=== PATIENT | male | born 1980 | race Caucasian/White ===

== ENCOUNTER 2024-04-24 08:18 | Day surgery (SDC) | payer OTHER ==
[~2024-04-24] VITALS: Ht 190.5 cm; Wt 112.2 kg
[~2024-04-24 08:18] MED LIST: IBLOOD GLUCOSE TEST STRIP 1 EA TEST VI PRN; LACTATED RINGER'S 1,000 ML IV SCH; LIDOCAINE HCL 1% 5 ML SDV INJ ONE; LIDOCAINE HCL 4% 50 ML BTL TOP SCH; MIDAZOLAM HCL 5 MG/5 ML VIAL IV PRN; fentaNYL citrate 100 MCG/2 ML VIAL IV PRN
[2024-04-24 08:41] VITALS: BP 111/61
[2024-04-24] MEDS ORDERED: fentaNYL citrate 100 MCG/2 ML VIAL ONE ×2 (09:45→09:46)
[2024-04-24] MEDS ORDERED: MIDAZOLAM HCL 5 MG/5 ML VIAL ONE (09:46)
--- NOTE | 2024-04-24 10:54 | NUR ---
04/24/24 1054 Madonna Mejia 1052-PT TO PACU IN SUPINE POSITION. EYES OPEN AT TIMES, PT REMAINS DROWSY. PT DENIES PAIN AND FALLS BACK TO SLEEP. BREATHING EASY AND UNLABORED. SPO2 >95% ON 2 L O2 VIA NC. PT REPOSITIONS SELF TO LL POSITION. PT ENCOURAGED TO PASS GAS.
[2024-04-24 11:32] VITALS: BP 114/78
--- NOTE | 2024-04-24 15:28 | OR ---
[facility] [address], [place] [address] Signed DATE OF OPERATION: 04/24/2024 SURGEON: Deepti Escamilla MD PREOPERATIVE DIAGNOSES: 1. Gastroesophageal reflux symptoms. 2. Family history of colon cancer (father). POSTOPERATIVE DIAGNOSES: 1. Hiatal hernia and distal esophagitis without stricture or neoplasm. No evidence of Anderson's epithelium. 2. Small polyps x2 (splenic flexure and proximal ascending colon). PROCEDURES: 1. Total colonoscopy to cecum with cold morcellation polypectomy x2. 2. Upper endoscopy with biopsy. ANESTHESIA: Intravenous sedation; fentanyl 150 mcg, Versed 8 mg total. INDICATIONS: This 43-year-old white man is a patient of MARICRUZ Majano. He last underwent colonoscopy in 2014, which was normal. He has a family history of colon cancer in his father, who contracted colon cancer at age 48 and younger brother had colon polyps. He had no findings on colonoscopy at age 33 and was recommended to have repeat colonoscopy in 5 years based on his family history. He currently has no symptoms of bleeding, diarrhea, or constipation. Additionally, he has symptoms of reflux, which were rather significant. He usually takes Tums tablets with some benefit. He has been prescribed PPI medication, but he "forgets" to take it. He is admitted at this time to undergo upper endoscopy and colonoscopy. He understands the risk of bleeding, infection, perforation. FINDINGS: Upper endoscopy did demonstrate a poor flap valve consistent with small hiatal hernia and distal esophagitis. There was no sign of Anderson epithelium. CLOtest was negative. On colonoscopy, the prep was good. Complete colonoscopy was undertaken of the cecum and he had two small polyps, one at the splenic flexure and another at the proximal ascending colon, both were excised. Electronically Signed By: DEEPTI ESCAMILLA MD 04/24/24 1528 PATIENT NAME: SHIVAM CASTILLO OPERATIVE REPORT DATE OF : 76 REPORT #: [id number] PHYSICIAN: DEEPTI ESCAMILLA MD PCP: NUBIA ROJAS REPORT IS CONFIDENTIAL AND NOT TO BE RELEASED WITHOUT AUTHORIZATION [facility] [address], [place] [address] Signed DESCRIPTION OF PROCEDURE: The patient was brought to the endoscopy suite and placed in lateral decubitus position given intravenous sedation to the point of slurred speech and nystagmus after undergoing lidocaine hypopharyngeal anesthesia. A bite block was placed. Olympus video upper endoscope was passed into the hypopharynx. Vocal cords reasonably normal, though the posterior fourchette did have inflammatory change. The scope was advanced to the esophagus throughout its length, it was normal except in the distal portion there was mild inflammatory change, but no Anderson epithelium, stricture, or neoplasm. The scope was passed through the stomach, which was insufflated with air. Rugal folds were normal. The pylorus was normal. Scope was passed through into the duodenum, which was normal overall. Biopsies were obtained of the duodenum to assess for celiac disease and also of the antrum to assess for H pylori. CLOtest was obtained as well. The scope was withdrawn and retroflexed view showed additionally normal-appearing flap valve, but easily effaced revealing distal esophagitis. The scope was straightened and withdrawn. Biopsy was taken of the distal esophagus and ultimately mid esophagus and scope was removed. Plans were then made for colonoscopy. Additional sedation was given. Digital rectal examination was performed, which was normal. An Olympus video colonoscope was passed into the rectum and manipulated throughout the colon, ultimately intubating the cecum itself. The ileocecal valve and appendiceal orifice were normal. Scope was withdrawn from that point and a small polyp was noted at the proximal right colon, this was excised with cold morcellation technique. Further withdrawal showed another similar such polyp in the splenic flexure, it too was excised. Further withdrawal showed no other abnormality. Retroflexed view of the rectum was normal. The scope was withdrawn and removed, the patient was taken to the recovery room in good condition. CONCLUDING DIAGNOSES: 1. Gastroesophageal reflux clinically and endoscopically, we will prescribe in a more dedicated way PPI medication on daily basis. We will see him back in the office in six weeks more or less to assess his result. 2. Polyps on colon. Given the polyps that were found, we would recommend repeat colonoscopy in three years rather than five as usually recommended based on family history. Deepti Escamilla MD Electronically Signed By: DEEPTI ESCAMILLA MD 04/24/24 1528 PATIENT NAME: SHIVAM CASTILLO OPERATIVE REPORT DATE OF : [birth year] REPORT #: [id number] PHYSICIAN: DEEPTI ESCAMILLA MD PCP: NUBIA ROJAS REPORT IS CONFIDENTIAL AND NOT TO BE RELEASED WITHOUT AUTHORIZATION [address] [address] Signed /MODL /[id number] cc: MARICRUZ Majano Copies: ~ Electronically Signed By: DEEPTI ESCAMILLA MD 04/24/24 1528 PATIENT NAME: JONATHANSHIVAM O OPERATIVE REPORT DATE OF : 76 REPORT #: [id number] PHYSICIAN: DEEPTI ESCAMILLA MD PCP: NUBIA ROJAS REPORT IS CONFIDENTIAL AND NOT TO BE RELEASED WITHOUT AUTHORIZATION
--- NOTE | 2024-04-30 16:35 | PATH ---
[facility] [address] [facility] [place], [place] [address] Signed SPECIMEN(S): A DUODENAL BIOPSY SPECIMEN(S): B ANTRUM BIOPSY SPECIMEN(S): C LOWER ESOPHAGUS BIOPSY SPECIMEN(S): D MID ESOHAGUS BIOPSY SPECIMEN(S): E ASCENDING RIGHT COLON POLYP SPECIMEN(S): F SPLENIC FLEXURE COLON POLYP SPECIMEN SOURCE: A. DUODENAL BIOPSY B. ANTRUM BIOPSY C. LOWER ESOPHAGUS BIOPSY D. MID ESOHAGUS BIOPSY E. ASCENDING RIGHT COLON POLYP F. SPLENIC FLEXURE COLON POLYP CLINICAL HISTORY: F Hx colon cancer, dysphagia, GERD with esophagitis. Postop: Hiatal hernia, polyp x 2 FINAL PATHOLOGIC DIAGNOSIS: A. Duodenal biopsy: - Benign duodenal mucosa, negative for specific diagnostic abnormality. B. Antrum biopsy: - Benign gastric mucosa with focal slight chronic inflammation. - Negative for evidence of Helicobacter organisms on routine HE stain sections. C. Lower esophagus biopsy: - Benign esophageal mucosa, negative for increased epithelial eosinophils. - Negative for glandular mucosa. D. Mid esophagus biopsy: - Benign esophageal mucosa, negative for increased epithelial eosinophils. E. Ascending right colon polyp: - Serrated polyp/adenoma (multiple fragments). F. Splenic flexure colon polyp: - Polypoid colonic mucosa with focal slight hyperplastic features. JVR:dennis MICROSCOPIC EXAMINATION: Histologic sections of all submitted blocks are examined by light microscopy. These findings, together with the gross examination, support the pathologic diagnosis. PATIENT NAME: MARTELLSHIVAM Ijeoma PATHOLOGY DATE OF : 76 REPORT #: [id number] PHYSICIAN: AIRAM ARREDONDO PCP: NUBIA ROJAS REPORT IS CONFIDENTIAL AND NOT TO BE RELEASED WITHOUT AUTHORIZATION [facility] [address] [place], [place] [address] Signed GROSS DESCRIPTION: A. The specimen, labeled and designated "Martell, designation per requisition, duodenum biopsy," is received in formalin and consists of three fragments of soft melton tissue that are up to 0.3 cm in greatest dimension. Entirely submitted in (A1). B. The specimen, labeled and designated "Martell, designation per requisition, antrum/pylorus biopsy," is received in formalin and consists of two fragments of soft melton tissue that are up to 0.8 cm in greatest dimension. Entirely submitted in (B1). C. The specimen, labeled and designated "Martell, designation per requisition, lower esophagus biopsy," is received in formalin and consists of six fragments of soft melton tissue that are up to 0.6 cm in greatest dimension. Entirely submitted in (C1). D. The specimen, labeled and designated "Martell, designation per requisition, middle esophagus biopsy," is received in formalin and consists of two fragments of soft melton tissue that are up to 0.6 cm in greatest dimension. Entirely submitted in (D1). E. The specimen, labeled and designated "Martell, designation per requisition ascending/right polyp," is received in formalin and consists of multiple tissue fragments the largest measuring 1.5 x 0.8 0.2 cm in greatest dimension, inked black, and serially sectioned. Entirely submitted F. The specimen, labeled and designated "Martell, designation per requisition splenic flexure polyp," is received in formalin and consists of five fragments of soft melton tissue that are up to 0.3 cm in greatest dimension. Entirely submitted in (F1). TW (under the direct supervision of a pathologist) The Gross Description was prepared using a voice recognition system. The report was reviewed for accuracy; however, sound-alike word errors, addition and/or deletions may occur. If there is any question about this report, please contact Client Services. PERFORMING LABORATORY: Technical component was performed by [facility], [address] [place] [id number] (CLIA# [id number]). Professional interpretation was performed by [facility], [address] [place] [id number] (CLIA#: [id number]). Diagnostician: Buck Denis MD Pathologist PATIENT NAME: SHIVAM CASTILLO PATHOLOGY DATE OF : [birth year] REPORT #: [id number] PHYSICIAN: AIRAM ARREDONDO PCP: NUBIA ROJAS REPORT IS CONFIDENTIAL AND NOT TO BE RELEASED WITHOUT AUTHORIZATION [facility] [address] [place] [address] [place], [place] [address] Signed Electronically Signed 04/30/2024 Copies: ~ PATIENT NAME: SHIVAM CASTILLO PATHOLOGY DATE OF : [birth year] REPORT #: [id number] PHYSICIAN: AIRAM PATHOLOGY PCP: NUBIA ROJAS REPORT IS CONFIDENTIAL AND NOT TO BE RELEASED WITHOUT AUTHORIZATION
== END 2024-04-24 11:45 | disposition home or self-care (01) ==
LOC: OPS 08:18 → DS 08:23 → OPS 09:15
PROVIDERS: ATTEND Surgery
PROC: 0DB38ZX Excision of Lower Esophagus, Via Natural or Artificial Opening Endoscopic, Diagnostic (ICD-10-PCS; 2024-04-24)
PROC: 0DBF8ZX Excision of Right Large Intestine, Via Natural or Artificial Opening Endoscopic, Diagnostic (ICD-10-PCS; 2024-04-24)
PROC: 0DBL8ZX Excision of Transverse Colon, Via Natural or Artificial Opening Endoscopic, Diagnostic (ICD-10-PCS; 2024-04-24)
PROC: 0DB98ZX Excision of Duodenum, Via Natural or Artificial Opening Endoscopic, Diagnostic (ICD-10-PCS; principal; 2024-04-24 09:15)
PROC: 0DB28ZX Excision of Middle Esophagus, Via Natural or Artificial Opening Endoscopic, Diagnostic (ICD-10-PCS; 2024-04-24 09:15)
DX: K21.00 Gastro-esophageal reflux disease with esophagitis, without bleeding (principal); K29.50 Unspecified chronic gastritis without bleeding; K44.9 Diaphragmatic hernia without obstruction or gangrene; K63.5 Polyp of colon; D12.2 Benign neoplasm of ascending colon; G47.33 Obstructive sleep apnea (adult) (pediatric); E66.01 Morbid (severe) obesity due to excess calories; Z68.30 Body mass index [BMI] 30.0-30.9, adult; Z80.0 Family history of malignant neoplasm of digestive organs; Z87.891 Personal history of nicotine dependence
CPT/HCPCS: 99153; G0500; J2250; J3010; J7121

== ENCOUNTER 2025-09-27 07:28 | Day surgery (SDC) | payer OTHER ==
[~2025-09-27] VITALS: Ht 190.5 cm; Wt 111.0 kg
[~2025-09-27 07:28] MED LIST changes: -LIDOCAINE HCL 4% 50 ML BTL TOP SCH
[2025-09-27 07:44] VITALS: BP 131/76
[2025-09-27] MEDS ORDERED: fentaNYL citrate 100 MCG/2 ML VIAL ONE (08:41)
[2025-09-27] MEDS ORDERED: MIDAZOLAM HCL 5 MG/5 ML VIAL ONE (08:41)
--- NOTE | 2025-09-27 10:09 | NUR ---
09/27/25 Alex8 Tasia Casey 1002- PT PRESENTS TO PACU, LEFT LATERAL SEMI VENTURA POSITION. PT AWAKE BUT DROWSY. BREATHING EVEN AND NON LABORED, O2 AT 3L PER NC. LR INFUSING TO RH IV. ABD SOFT, NON DISTENDED, ENCOURAGED TO PASS GAS, DENIES PAIN OR NAUSEA. ALL MONITORS IN PLACE. PT RESTING INTERMITTENTLY.
[2025-09-27 10:28] VITALS: BP 113/79
--- NOTE | 2025-09-29 14:52 | OR ---
[facility] [address] [place], [place] [address] Signed DATE OF OPERATION: 09/27/2025 SURGEON: Deepti Escamilla MD PREOPERATIVE DIAGNOSES: 1. History of serrated adenoma 2023. 2. Family history of colon cancer (father). POSTOPERATIVE DIAGNOSIS: Small sessile polyp of sigmoid and four small probably hyperplastic polyps of rectum. PROCEDURES: Total colonoscopy to cecum with cold snare polypectomy x1 and cold morcellation polypectomy x4. ANESTHESIA: Intravenous sedation fentanyl 100 mcg and Versed 7 mg. INDICATION: A 44-year-old white man, patient of Ann Aggarwal PA-C, undergoing colonoscopy in 2023 by nc where he was found to have at least one serrated adenoma. He has family history of colon cancer in his father. He currently has no symptoms of bleeding, diarrhea or constipation. He also had a splenic flexure, hyperplastic polyp. He is admitted for short-term surveillance, given the serrated nature of his previous polyp and family history. He understands the risk of bleeding, infection, and perforation related to colonoscopy and wished to proceed. FINDINGS: The prep was excellent. Complete colonoscopy was undertaken of the cecum. There were four tiny hyperplastic polyps in the rectum and a small sessile possibly adenomatous polyp of the sigmoid. All were excised completely. DESCRIPTION OF PROCEDURE: The patient was brought to the endoscopy suite and placed in lateral decubitus position, given intravenous sedation to the point of slurred speech and nystagmus. Digital rectal examination was normal. An Olympus video colonoscope was passed in the rectum and manipulated throughout the colon ultimately intubating the cecum itself. The ileocecal valve and appendiceal orifice were normal. Scope was withdrawn from that point. Examination showed no sign Electronically Signed By: DEEPTI ESCAMILLA MD 09/29/25 1452 PATIENT NAME: SHIVAM CASTILLO OPERATIVE REPORT DATE OF : [birth year] REPORT #: [id number] PHYSICIAN: DEEPTI ESCAMILLA MD PCP: CAT MORALES PAC REPORT IS CONFIDENTIAL AND NOT TO BE RELEASED WITHOUT AUTHORIZATION [facility] [address] [place], [place] [address] Signed of abnormality until the sigmoid where a small sessile polyp was noted, this was excised with cold snare technique and morcellation technique to complete it. Further withdrawal showed in the rectosigmoid for probable hyperplastic polyps, all excised with cold morcellation technique. Retroflexed view was otherwise normal. Scope was removed. The patient was taken to the recovery room in good condition. CONCLUDING DIAGNOSIS: Polyps x5, probably hyperplastic largely. PLAN: Recommend repeat colonoscopy in 5 years based on family history in his father. Colonoscopy should be done sooner if he should develop symptoms. MD KAILEY Alexandra/RENNY /[id number] cc: Ann Aggarwal PA-C Copies: ~ Electronically Signed By: DEEPTI ESCAMILLA MD 09/29/25 1452 PATIENT NAME: SHIVAM CASTILLO OPERATIVE REPORT DATE OF : 76 REPORT #: [id number] PHYSICIAN: DEEPTI ESCAMILLA MD PCP: CAT MORALES PAC REPORT IS CONFIDENTIAL AND NOT TO BE RELEASED WITHOUT AUTHORIZATION
--- NOTE | 2025-10-04 11:52 | PATH ---
[facility] [address] [place], [place] [address] Signed SPECIMEN(S): A SIGMOID POLYP SPECIMEN(S): B RECTAL POLYP SPECIMEN SOURCE: A. SIGMOID POLYP B. RECTAL POLYP CLINICAL HISTORY: History of ? and serrated polyps. Polyps. FINAL PATHOLOGIC DIAGNOSIS: A. Sigmoid polyp: - Hyperplastic polyp B. Rectal polyp: - Hyperplastic polyp BB MICROSCOPIC EXAMINATION: Histologic sections of all submitted blocks are examined by light microscopy. These findings, together with the gross examination, support the pathologic diagnosis. GROSS DESCRIPTION: A. The specimen, labeled and designated "Param, S, 1." and designated on the requisition "sigmoid polypectomy," is received in formalin and consists of five melton soft tissue fragments that measure 0.2-0.7 cm in greatest dimension. The specimen is entirely submitted in (A1). B. The specimen, labeled and designated "Param, S, 2." and designated on the requisition "rectal polypectomy," is received in formalin and consists of three melton soft tissue fragments that measure 0.2-0.3 cm in greatest dimension. The specimen is entirely submitted in (B1). FB (under the direct supervision of a pathologist) The Gross Description was prepared using a voice recognition system. The report was reviewed for accuracy; however, sound-alike word errors, addition and/or deletions may occur. If there is any question about this report, please contact Client Services. ADDITIONAL NOTES: Immunohistochemical and/or in situ hybridization studies if performed in this case included appropriate positive controls that reacted as expected. This test was developed and its performance PATIENT NAME: SHIVAM CASTILLO PATHOLOGY DATE OF : [birth year] REPORT #: [id number] PHYSICIAN: AIRAM ARREDONDO PCP: CAT MORALES PAC REPORT IS CONFIDENTIAL AND NOT TO BE RELEASED WITHOUT AUTHORIZATION [facility] [address] [place], [place] [address] Signed characteristics determined by [facility]. It has not been cleared or approved by the U.S. Food and Drug Administration. The FDA has determined that such clearance or approval is not necessary. This test is used for clinical purposes. It should not be regarded as investigational or for research. [facility] is certified under the Clinical Laboratory Improvement Amendments of 1988 (CLIA) as qualified to perform high complexity clinical laboratory testing. PERFORMING LABORATORY: Technical component was performed by [facility], [address] [place] [address] (CLIA# [id number]). Professional interpretation was performed by [place] [address] (CLIA#: [id number]). Diagnostician: Yaakov Fatima MD Pathologist Electronically Signed 10/04/2025 Copies: ~ PATIENT NAME: SHIVAM CASTILLO PATHOLOGY DATE OF : [birth year] REPORT #: [id number] PHYSICIAN: AIRAM ARREDONDO PCP: CAT MORALES PAC REPORT IS CONFIDENTIAL AND NOT TO BE RELEASED WITHOUT AUTHORIZATION
== END 2025-09-27 10:35 | disposition home or self-care (01) ==
LOC: DS 07:28
PROVIDERS: ATTEND Surgery
PROC: 0DBP8ZX Excision of Rectum, Via Natural or Artificial Opening Endoscopic, Diagnostic (ICD-10-PCS; 2025-09-27)
PROC: 0DBN8ZX Excision of Sigmoid Colon, Via Natural or Artificial Opening Endoscopic, Diagnostic (ICD-10-PCS; principal; 2025-09-27 08:15)
DX: Z12.11 Encounter for screening for malignant neoplasm of colon (principal); K63.5 Polyp of colon; K62.1 Rectal polyp; G47.33 Obstructive sleep apnea (adult) (pediatric); E66.01 Morbid (severe) obesity due to excess calories; Z68.31 Body mass index [BMI] 31.0-31.9, adult; Z86.0101 Personal history of adenomatous and serrated colon polyps; Z80.0 Family history of malignant neoplasm of digestive organs
CPT/HCPCS: 99153; G0500; J2250; J3010; J7121